=== PATIENT | male | born 1970 | race Caucasian/White ===

== ENCOUNTER 2017-07-27 17:11 | Emergency (ER) | payer OTHER ==
[~2017-07-27] VITALS: Ht 170.2 cm; Wt 90.7 kg
[2017-07-27] MEDS ORDERED: ALBU4 PO (17:25)
[2017-07-27] MEDS ORDERED: IBUP800 PO (17:56)
[2017-07-27] MEDS ORDERED: CYCL10 PO (17:56)
== END 2017-07-27 18:12 | disposition home or self-care (01) ==
LOC: ER 17:11
DX: M54.5 Low back pain (principal); J45.909 Unspecified asthma, uncomplicated; E78.5 Hyperlipidemia, unspecified; F17.200 Nicotine dependence, unspecified, uncomplicated
CPT/HCPCS: 73562-RT; 99283